=== PATIENT | male | born 1970 | race Caucasian/White ===

== ENCOUNTER 2019-06-07 15:54 | Emergency (ER) | payer OTHER ==
[~2019-06-07] VITALS: Ht 170.2 cm; Wt 79.4 kg
[2019-06-07] MEDS ORDERED: LEVOTHYROXINE25 MCG (16:03)
[2019-06-07] MEDS ORDERED: ZYRTEC10 M3 (16:03)
== END 2019-06-07 18:33 | disposition home or self-care (01) ==
LOC: ER 15:54
DX: N43.2 Other hydrocele (principal)

== ENCOUNTER 2019-06-11 08:08 | Outpatient (CLI) | payer OTHER ==
[~2019-06-11 08:08] MED LIST: LEVOTHYROXINE25 MCG; ZYRTEC10 M3
== END 2019-06-11 08:19 | disposition home or self-care (01) ==
LOC: RAD 08:08
DX: R10.84 Generalized abdominal pain (principal)

== ENCOUNTER 2020-05-22 13:05 | Emergency (ER) | payer OTHER ==
[~2020-05-22] VITALS: Ht 170.2 cm; Wt 77.1 kg
== END 2020-05-22 15:30 | disposition home or self-care (01) ==
LOC: ER 13:05
DX: N20.0 Calculus of kidney (principal); R10.32 Left lower quadrant pain